=== PATIENT | female | born 1985 | race Caucasian/White ===

== ENCOUNTER 2017-10-22 15:26 | Emergency (ER) | payer SELFPAY ==
[~2017-10-22] VITALS: Ht 167.6 cm; Wt 91.0 kg
[2017-10-22 16:02] VITALS: BP 135/85; PULSE 74; RESP 15; TEMP 98.5; O2SAT 96
[2017-10-22] MEDS ORDERED: VENL150C39 PO (18:20)
[2017-10-22] MEDS ORDERED: ABIL15TA3 PO (18:20)
[2017-10-22 18:59] LABS: BILIRUBIN, URINE NEG (NEG); BLOOD, URINE NEG (NEG); GLUCOSE,URINE NEG (NEG); KETONE, URINE NEG (NEG); NITRITE,URINE NEG (NEG); PH, URINE 5.5 (5.0-8.5); SQUAMOUS EPITHELIAL CELL URINE 4 /hpf (0-5); URINE COLOR LIGHT-YELLOW (YELLW/STRAW); URINE LEUKOCYTE ESTERASE NEG (NEG)
[2017-10-22 19:01] VITALS: BP 122/63; PULSE 67; RESP 18; TEMP 99.2; O2SAT 97
[2017-10-22 20:08] LABS: AUTOMATED NEUTROPHIL # 6.8 TH/MM3 (1.8-7.7); BASOPHIL # 0.1 TH/MM3 (0-0.2); BASOPHIL % 0.5 % (0.0-2.0); EOSINOPHIL # 0.2 TH/MM3 (0-0.4); EOSINOPHIL % 1.7 % (0.0-4.0); HEMOGLOBIN 13.2 GM/DL (11.6-15.3); LYMPH % 24.2 % (9.0-44.0); LYMPHOCYTE # 2.6 TH/MM3 (1.0-4.8); MEAN CELL VOLUME 85.9 FL (80.0-100.0); MEAN CORPUSCULAR HEMOGLOBIN 28.4 PG (27.0-34.0); MEAN CORPUSCULAR HGB CONC 33.1 % (32.0-36.0); MEAN PLATELET VOLUME 8.2 FL (7.0-11.0); MONO % 10.8 % (0.0-8.0); MONOCYTE # 1.2 TH/MM3 (0-0.9); NEUT % 62.8 % (16.0-70.0); PLATELET COUNT 336 TH/MM3 (150-450); RED BLOOD COUNT 4.65 MIL/MM3 (4.00-5.30); RED CELL DISTRIBUTION WIDTH 14.3 % (11.6-17.2); WHITE BLOOD COUNT 10.8 TH/MM3 (4.0-11.0)
[2017-10-22 20:28] LABS: ALBUMIN 3.5 GM/DL (3.4-5.0); AST (GOT) 21 U/L (15-37); BICARBONATE 25.1 MEQ/L (21.0-32.0); BLOOD UREA NITROGEN 10 MG/DL (7-18); CALCIUM 8.7 MG/DL (8.5-10.1); CHLORIDE 107 MEQ/L (98-107); CREATININE 0.78 MG/DL (0.50-1.00); GLOMERULAR FILTRATION RATE 87 ML/MIN (>89); GLUCOSE,RANDOM 85 MG/DL (74-106); SODIUM (NA) 140 MEQ/L (136-145)
[2017-10-22 20:29] LABS: ALT (GPT) 26 U/L (10-53)
[2017-10-22 20:36] LABS: ACETAMINOPHEN LESS THAN 2.0 MCG/ML (10.0-30.0)
[2017-10-22 20:38] LABS: ALKALINE PHOSPHATASE 88 U/L (45-117); TOTAL BILIRUBIN ADULT 0.1 MG/DL (0.2-1.0); TOTAL PROTEIN 7.1 GM/DL (6.4-8.2)
--- NOTE | 2017-10-22 20:46 | PD ---
HPI Chief Complaint: Psychiatric Symptoms Time Seen by Provider: 18:52 Travel History International Travel<30 days: No Contact w/Intl Traveler<30days: No Traveled to known affect area: No History of Present Illness HPI 32-year-old female presents to the emergency room for evaluation of severe depression and suicidal ideation. States she has had these symptoms her whole life. Over the past several weeks they have worsened in severity. Patient is not currently on any medication for depression. States she had a leftover prescription for Prozac which she took but it did not seem to help. She does not have a specific plan but states she would do anything spontaneously if she could. She has been sober for a little over a year and lives in a sober house. She used to do cocaine and drink alcohol. She denies any chronic medical conditions other than psychiatric. Denies any medical complaints at this time. PFSH Past Medical History Anxiety: Yes (Per pt.) Depression: Yes (Per pt.) Patient Takes Glucophage: No Psychiatric: Yes Tetanus Vaccination: > 5 Years ?: Not LMP: Approx 10/10/2017 per pt. : 1 Para: 0 Miscarriage: 0 : 1 Past Surgical History Surgical History: No Previous Surgery Social History Alcohol Use: No (Sober for approx 1.5yrs per pt. ) Tobacco Use: Yes (3x cigs daily per pt. ) Substance Use: No (Pt denies. ) Allergies-Medications (Allergen,Severity, Reaction): Coded Allergies: No Known Allergies (Unverified , 10/22/17) Reported Meds & Prescriptions Reported Meds & Active Scripts Active Reported Venlafaxine ER 24 HR (Venlafaxine HCl) 150 Mg Cap 150 Mg PO DAILY Abilify (Aripiprazole) 15 Mg Tab 15 Mg PO DAILY Review of Systems Except as stated in HPI: all other systems reviewed are Neg Physical Exam Narrative GENERAL: Well-nourished, well-developed female no acute distress. Afebrile. Ambulatory. SKIN: Focused skin assessment warm/dry. HEAD: Normocephalic. EYES: No scleral icterus. No injection or drainage. NECK: Supple, trachea midline. No JVD or lymphadenopathy. CARDIOVASCULAR: Regular rate and rhythm without murmurs, gallops, or rubs. RESPIRATORY: Breath sounds equal bilaterally. No accessory muscle use. PSYCHIATRIC: No delusional thought processes. No hallucinations. Flat affect. Depressed mood. Data Data Last Documented VS Vital Signs Date Time Temp Pulse Resp B/P (MAP) Pulse Ox O2 Delivery O2 Flow Rate FiO2 10/22/17 19:01 99.2 67 18 122/63 (82) 97 Room Air Orders Orders Diet Regular Basic (10/22/17 Dinner) Complete Blood Count With Diff (10/22/17 18:24) Comprehensive Metabolic Panel (10/22/17 18:24) Thyroid Stimulating Hormone (10/22/17 18:24) Urinalysis - C+S If Indicated (10/22/17 18:24) Ed Urine Pregnancytest Poc (10/22/17 18:24) Psych Screen (10/22/17 18:24) Drug Screen, Random Urine (10/22/17 18:24) Alcohol (Ethanol) (10/22/17 18:24) Salicylates (Aspirin) (10/22/17 18:24) Tylenol (Acetaminophen) (10/22/17 18:24) Labs Laboratory Tests Test 10/22/17 16:15 10/22/17 16:19 10/22/17 19:30 Urine Color LIGHT-YELLOW Urine Turbidity CLEAR Urine pH 5.5 Urine Specific [place] 1.013 Urine Protein NEG mg/dL Urine Glucose (UA) NEG mg/dL Urine Ketones NEG mg/dL Urine Occult Blood NEG Urine Nitrite NEG Urine Bilirubin NEG Urine Urobilinogen LESS THAN 2.0 MG/DL Urine Leukocyte Esterase NEG Urine RBC 2 /hpf Urine WBC 1 /hpf Urine Squamous Epithelial Cells 4 /hpf Microscopic Urinalysis Comment CULT NOT INDICATED Urine Opiates Screen NEG Urine Barbiturates Screen NEG Urine Amphetamines Screen NEG Urine Benzodiazepines Screen NEG Urine Cocaine Screen NEG Urine Cannabinoids Screen NEG White Blood Count 10.8 TH/MM3 Red Blood Count 4.65 MIL/MM3 Hemoglobin 13.2 GM/DL Hematocrit 40.0 % Mean Corpuscular Volume 85.9 FL Mean Corpuscular Hemoglobin 28.4 PG Mean Corpuscular Hemoglobin Concent 33.1 % Red Cell Distribution Width 14.3 % Platelet Count 336 TH/MM3 Mean Platelet Volume 8.2 FL Neutrophils (%) (Auto) 62.8 % Lymphocytes (%) (Auto) 24.2 % Monocytes (%) (Auto) 10.8 % Eosinophils (%) (Auto) 1.7 % Basophils (%) (Auto) 0.5 % Neutrophils # (Auto) 6.8 TH/MM3 Lymphocytes # (Auto) 2.6 TH/MM3 Monocytes # (Auto) 1.2 TH/MM3 Eosinophils # (Auto) 0.2 TH/MM3 Basophils # (Auto) 0.1 TH/MM3 CBC Comment DIFF FINAL Differential Comment Blood Urea Nitrogen 10 MG/DL Creatinine 0.78 MG/DL Random Glucose 85 MG/DL Total Protein 7.1 GM/DL Albumin 3.5 GM/DL Calcium Level 8.7 MG/DL Alkaline Phosphatase 88 U/L Aspartate Amino Transf (AST/SGOT) 21 U/L Alanine Aminotransferase (ALT/SGPT) 26 U/L Total Bilirubin 0.1 MG/DL Sodium Level 140 MEQ/L Potassium Level 3.7 MEQ/L Chloride Level 107 MEQ/L Carbon Dioxide Level 25.1 MEQ/L Anion Gap 8 MEQ/L Estimat Glomerular Filtration Rate 87 ML/MIN Thyroid Stimulating Hormone 3rd Gen 1.240 uIU/ML Salicylates Level LESS THAN 1.7 MG/DL Acetaminophen Level LESS THAN 2.0 MCG/ML Ethyl Alcohol Level LESS THAN 3 MG/DL MDM Medical Decision Making Medical Screen Exam Complete: Yes Emergency Medical Condition: Yes Medical Record Reviewed: Yes Differential Diagnosis Suicidal ideation, bipolar disorder, substance-induced Narrative Course 32-year-old female presents to the emergency room for evaluation of suicidal ideation for the past several weeks. She has history of depression but has never been this bad. She does not have a plan. No chronic medical conditions other than psychiatric. No physical complaints at this time. Physical exam was unremarkable. CBC, CMP are unremarkable. UA is negative. Drug screen is negative. Patient is medically cleared for psychiatric evaluation. Condition: Stable Rylee Torrez October 22, 2017 20:46
[2017-10-23 00:41] VITALS: BP 118/64; PULSE 74; RESP 18; O2SAT 98
--- NOTE | 2017-10-23 10:10 | PD ---
Physical Exam Time Seen by Provider: 10:08 PRANAY Hinojosa has evaluated the patient and cleared the patient for discharge. Data Data Last Documented VS Vital Signs Date Time Temp Pulse Resp B/P (MAP) Pulse Ox O2 Delivery O2 Flow Rate FiO2 10/23/17 00:41 74 18 118/64 (82) 98 Room Air 10/22/17 19:01 99.2 Orders Orders Diet Regular Basic (10/22/17 Dinner) Complete Blood Count With Diff (10/22/17 18:24) Comprehensive Metabolic Panel (10/22/17 18:24) Thyroid Stimulating Hormone (10/22/17 18:24) Urinalysis - C+S If Indicated (10/22/17 18:24) Ed Urine Pregnancytest Poc (10/22/17 18:24) Psych Screen (10/22/17 18:24) Drug Screen, Random Urine (10/22/17 18:24) Alcohol (Ethanol) (10/22/17 18:24) Salicylates (Aspirin) (10/22/17 18:24) Tylenol (Acetaminophen) (10/22/17 18:24) Diet Regular Basic (10/23/17 Breakfast) Diet Regular Basic (10/23/17 Lunch) Labs Laboratory Tests Test 10/22/17 16:15 10/22/17 16:19 10/22/17 19:30 Urine Color LIGHT-YELLOW Urine Turbidity CLEAR Urine pH 5.5 Urine Specific [place] 1.013 Urine Protein NEG mg/dL Urine Glucose (UA) NEG mg/dL Urine Ketones NEG mg/dL Urine Occult Blood NEG Urine Nitrite NEG Urine Bilirubin NEG Urine Urobilinogen LESS THAN 2.0 MG/DL Urine Leukocyte Esterase NEG Urine RBC 2 /hpf Urine WBC 1 /hpf Urine Squamous Epithelial Cells 4 /hpf Microscopic Urinalysis Comment CULT NOT INDICATED Urine Opiates Screen NEG Urine Barbiturates Screen NEG Urine Amphetamines Screen NEG Urine Benzodiazepines Screen NEG Urine Cocaine Screen NEG Urine Cannabinoids Screen NEG White Blood Count 10.8 TH/MM3 Red Blood Count 4.65 MIL/MM3 Hemoglobin 13.2 GM/DL Hematocrit 40.0 % Mean Corpuscular Volume 85.9 FL Mean Corpuscular Hemoglobin 28.4 PG Mean Corpuscular Hemoglobin Concent 33.1 % Red Cell Distribution Width 14.3 % Platelet Count 336 TH/MM3 Mean Platelet Volume 8.2 FL Neutrophils (%) (Auto) 62.8 % Lymphocytes (%) (Auto) 24.2 % Monocytes (%) (Auto) 10.8 % Eosinophils (%) (Auto) 1.7 % Basophils (%) (Auto) 0.5 % Neutrophils # (Auto) 6.8 TH/MM3 Lymphocytes # (Auto) 2.6 TH/MM3 Monocytes # (Auto) 1.2 TH/MM3 Eosinophils # (Auto) 0.2 TH/MM3 Basophils # (Auto) 0.1 TH/MM3 CBC Comment DIFF FINAL Differential Comment Blood Urea Nitrogen 10 MG/DL Creatinine 0.78 MG/DL Random Glucose 85 MG/DL Total Protein 7.1 GM/DL Albumin 3.5 GM/DL Calcium Level 8.7 MG/DL Alkaline Phosphatase 88 U/L Aspartate Amino Transf (AST/SGOT) 21 U/L Alanine Aminotransferase (ALT/SGPT) 26 U/L Total Bilirubin 0.1 MG/DL Sodium Level 140 MEQ/L Potassium Level 3.7 MEQ/L Chloride Level 107 MEQ/L Carbon Dioxide Level 25.1 MEQ/L Anion Gap 8 MEQ/L Estimat Glomerular Filtration Rate 87 ML/MIN Thyroid Stimulating Hormone 3rd Gen 1.240 uIU/ML Salicylates Level LESS THAN 1.7 MG/DL Acetaminophen Level LESS THAN 2.0 MCG/ML Ethyl Alcohol Level LESS THAN 3 MG/DL MDM Supervised Visit with DEREK: No Narrative Course PRANAY Felipe has evaluated the patient and cleared the patient for discharge. Patient contracts safety. Denies suicidal or homicidal ideations. Patient will be provided community resource packet to /[facility] for follow-up. Has friends and family for support. Patient was medically cleared by alternate provider prior to psych screening. Patient has been evaluated by psychiatry and and is now cleared for discharge. Diagnosis Primary Impression: Borderline personality disorder Referrals: [facility] (Out patient) [facility] Primary Care Physician Psychiatrist Josias MYR[facility] Behavior[facility] Patient Instructions: Borderline Personality Disorder (DC), General Instructions Additional Instruction: Contract safety to your self and others Follow-up with psychiatry Follow-up with primary care provider Follow-up with Tony Brand Return to the emergency department immediately with worsening of symptoms Med/Other Pt SpecificInfo: No Change to Meds, No Meds Exist/No RX given Disposition: 01 DISCHARGE HOME Condition: Stable Maribell Felix October 23, 2017 10:10
--- NOTE | 2017-10-23 10:13 | PD ---
History of Present Illness Chief Complaint: Psychiatric Symptoms Time Seen by Provider: 09:45 Travel History International Travel<30 Days: No Contact w/Intl Traveler<30days: No Known affected area: No Legal Status Legal Status: Voluntary History of Present Illness: History of Present Illness HPI 32-year-old, single female with reported hx of borderline personality disorder , depression, substance use disorder who presents to the emergency room voluntarily for psychiatric evaluation evaluation complaining of severe depression and suicidal ideation. States she has had these symptoms her whole life. Over the past several weeks they have worsened in severity with no identifiable stressor. Patient does report that she ran out of her psychiatric medications approximately 4 weeks ago. She did not go back to her prescriber because she felt that the medication she was taking including Effexor and Abilify were not helping. Patient did not make any attempt at harming herself. EMR reviewed. No previous contact with [facility] psychiatry. Labs are reviewed. Current toxicology is negative first substances of abuse. Patient is seen. Case discussed with nursing staff. Patient is found in her room finishing her breakfast. She is awake, alert, oriented, engaging and cooperative. Speech is clear, logical and of normal rate and tone. There is no evidence of any psychosis. She denies any hallucinations, delusions or paranoia. At times during the interview the patient is tearful. She denies current suicidal or homicidal ideation, intent or plan. Describes her mood as anxious. Remainder of psychiatric review of system is negative. PFSH Past Medical History Anxiety: Yes (Per pt.) Depression: Yes (Per pt.) Patient Takes Glucophage: No Psychiatric: Yes Tetanus Vaccination: > 5 Years ?: Not LMP: Approx 10/10/2017 per pt. : 1 Para: 0 Miscarriage: 0 : 1 Past Surgical History Surgical History: No Previous Surgery Psychiatric History Psychiatric History Hx Psychiatric Treatment: Began treatment at [facility] in March 2016. History of self-injurious behavior mostly cutting beginning at age [age] years old. No previous history of suicide attempts. She reports that in 2014 she took #15 antidepressant pills as a suicidal gesture. History of Inpatient Treatment: Yes ([facility]) Guns or firearms in home: No Social History Born and raised in [place]. Single never . Has no children. Moved to [place] at age 17. 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 Resides at a sober living facility called the [facility] since March 2016. Hx Alcohol Use: Yes (Sober for approx 1.5yrs per pt. ) Hx Tobacco Use: Yes (3x cigs daily per pt. ) Hx Substance Use: Yes Substance Use Type: Alcohol, Cocaine Hx of Substance Use Treatment: Yes Family Psychiatric History None reported Allergies-Medications (Allergen,Severity, Reaction): Coded Allergies: No Known Allergies (Unverified , 10/22/17) Reported Meds & Prescriptions Reported Meds & Active Scripts Active Reported Venlafaxine ER 24 HR (Venlafaxine HCl) 150 Mg Cap 150 Mg PO DAILY Abilify (Aripiprazole) 15 Mg Tab 15 Mg PO DAILY Review of Systems Psychiatric: COMPLAINS OF: Anxiety, Depression, DENIES: Confusion, Mood changes , Hallucinations, Agitation, Suicidal Ideation, Homicidal Ideation, Delusions Mental Status Examination Appearance: Appropriate Consciousness: Alert Orientation: x4 Motor Activity: Normal gait Speech: Unremarkable Language: Adequate Fund of Knowledge: Adequate Attention and Concentration: Adequate Memory: Unremarkable Mood: Appropriate Affect: Appropriate Thought Process & Associations: Intact, Logical, Goal directed Thought Content: Appropriate Hallucination Type: None Delusion Type: None Suicidal Ideation: No Suicidal Plan: No Suicidal Intention: No Homicidal Ideation: No Homicidal Plan: No Homicidal Intention: No Insight: Fair Judgment: Adequate [facility] Medical Decision Making Medical Record Reviewed: Yes Assessment/Plan 32-year-old, single female with reported hx of borderline personality disorder , depression, substance use disorder who presents to the emergency room voluntarily for psychiatric evaluation evaluation complaining of severe depression and suicidal ideation. Patient malik has been receiving treatment at [facility] but stopped her medications approximately 4 weeks ago. The patient has an appointment at [facility] tomorrow. She is interested in starting her medication again. At this time she does not present any psychosis, no kang, no suicidal or homicidal ideation, intent or plan. Patient does not met criteria for inpatient treatment. She agrees to follow up with [facility] tomorrow. She is provided psychoeducation. Psychiatrically clear for discharge from ED Orders Orders Diet Regular Basic (10/22/17 Dinner) Complete Blood Count With Diff (10/22/17 18:24) Comprehensive Metabolic Panel (10/22/17 18:24) Thyroid Stimulating Hormone (10/22/17 18:24) Urinalysis - C+S If Indicated (10/22/17 18:24) Ed Urine Pregnancytest Poc (10/22/17 18:24) Psych Screen (10/22/17 18:24) Drug Screen, Random Urine (10/22/17 18:24) Alcohol (Ethanol) (10/22/17 18:24) Salicylates (Aspirin) (10/22/17 18:24) Tylenol (Acetaminophen) (10/22/17 18:24) Diet Regular Basic (10/23/17 Breakfast) Diet Regular Basic (10/23/17 Lunch) Results Vital Signs Date Time Temp Pulse Resp B/P (MAP) Pulse Ox O2 Delivery O2 Flow Rate FiO2 10/23/17 00:41 74 18 118/64 (82) 98 Room Air 10/22/17 19:01 99.2 67 18 122/63 (82) 97 Room Air 10/22/17 16:02 98.5 74 15 135/85 (102) 96 Laboratory Tests Test 10/22/17 16:15 10/22/17 16:19 10/22/17 19:30 Urine Color LIGHT-YELLOW Urine Turbidity CLEAR Urine pH 5.5 Urine Specific [place] 1.013 Urine Protein NEG Urine Glucose (UA) NEG Urine Ketones NEG Urine Occult Blood NEG Urine Nitrite NEG Urine Bilirubin NEG Urine Urobilinogen LESS THAN 2.0 Urine Leukocyte Esterase NEG Urine RBC 2 Urine WBC 1 Urine Squamous Epithelial Cells 4 Microscopic Urinalysis Comment CULT NOT INDICATED Urine Opiates Screen NEG Urine Barbiturates Screen NEG Urine Amphetamines Screen NEG Urine Benzodiazepines Screen NEG Urine Cocaine Screen NEG Urine Cannabinoids Screen NEG White Blood Count 10.8 Red Blood Count 4.65 Hemoglobin 13.2 Hematocrit 40.0 Mean Corpuscular Volume 85.9 Mean Corpuscular Hemoglobin 28.4 Mean Corpuscular Hemoglobin Concent 33.1 Red Cell Distribution Width 14.3 Platelet Count 336 Mean Platelet Volume 8.2 Neutrophils (%) (Auto) 62.8 Lymphocytes (%) (Auto) 24.2 Monocytes (%) (Auto) 10.8 Eosinophils (%) (Auto) 1.7 Basophils (%) (Auto) 0.5 Neutrophils # (Auto) 6.8 Lymphocytes # (Auto) 2.6 Monocytes # (Auto) 1.2 Eosinophils # (Auto) 0.2 Basophils # (Auto) 0.1 CBC Comment DIFF FINAL Differential Comment Blood Urea Nitrogen 10 Creatinine 0.78 Random Glucose 85 Total Protein 7.1 Albumin 3.5 Calcium Level 8.7 Alkaline Phosphatase 88 Aspartate Amino Transf (AST/SGOT) 21 Alanine Aminotransferase (ALT/SGPT) 26 Total Bilirubin 0.1 Sodium Level 140 Potassium Level 3.7 Chloride Level 107 Carbon Dioxide Level 25.1 Anion Gap 8 Estimat Glomerular Filtration Rate 87 Thyroid Stimulating Hormone 3rd Gen 1.240 Salicylates Level LESS THAN 1.7 Acetaminophen Level LESS THAN 2.0 Ethyl Alcohol Level LESS THAN 3 Diagnosis Primary Impression: Borderline personality disorder Additional Impressions: Depressive disorder Substance use disorder Psychiatrically Cleared: Yes Med/ Other Pt Specific Info: No Change to Meds Disposition: 01 DISCHARGE HOME Condition: Stable Problem Qualifiers Destinee OrtegaP October 23, 2017 10:13
== END 2017-10-23 10:47 | disposition home or self-care (01) ==
LOC: NEPJ 15:26
DX: F60.3 Borderline personality disorder (principal); F32.9 Major depressive disorder, single episode, unspecified; Z79.899 Other long term (current) drug therapy
CPT/HCPCS: 80053; 80307; 81001; 84443; 85025; 99283